=== PATIENT | female | born 1945 | race Caucasian/White ===

== ENCOUNTER → 2017-02-17 20:44 | Outpatient (CLI) | payer MEDICARE | END | disposition home or self-care (01) | LOC: D.MAMMO 15:15 | DX: Z12.31 Encounter for screening mammogram for malignant neoplasm of breast (principal) ==

== ENCOUNTER 2017-07-24 11:35 | Inpatient (IN) | payer MEDICARE ==
[~2017-07-24] VITALS: Ht 154.9 cm; Wt 91.0 kg
--- NOTE | ~2017-07-24 | EC ---
PATIENT:BUZZ ARCHER DATE OF SERVICE: 07/24/17 SEX: F MEDICAL RECORD: [id number] DATE OF : 47 LOCATION:D.M2 D.211 AGE OF PATIENT: 72 ADMISSION DATE: 07/26/17 REFERRING PHYSICIAN: INTERPRETING PHYSICIAN: JIMMY ALSTON MD ECHOCARDIOGRAM REPORT ECHO CHARGES 4 ECHO COMPLETE CLINICAL DIAGNOSIS: DYSPNEA ECHOCARDIOGRAPHIC MEASUREMENTS (adult normal given) AC root (d.<3.7cm) 2.6 cm LV Septum d (<1.2 cm> 1.4 cm Valve Excursion 1.5 cm LV Septum (systole) 1.7 cm Left Atria (s.<4.0cm> 4.0 cm LVPW d(<1.2cm) 1.7 cm RV (d.<2.3cm) 4.3 cm LVPW (sytole) 2.0 cm LV diastole(<5.6CM) 4.6 cm MV E-F(>70mm/sec) cm LV systole 2.4 cm LVOT Diameter 1.4 cm MV exc.(>10mm) 1.1 cm Est.ejection fraction (50-75%) % Pericardial Effusion N DOPPLER: LVIT cm/sec A 66.0 cm/sec E 144 cm/sec LA cm/sec RVSP 58 mmHg LVOT 135 cm/sec AOP1/2T m/s Asc. Ao 167 cm/sec RVOT 98 cm/sec RA cm/sec PA 226 cm/sec AV Gradient Peak 24.60mmHg AV Mean 12.62mmHg AV Area 1.8 cm MV Gradient Peak 16.24mmHg MV Mean 5.52 mmHg MV Area cm COMMENTS: Hospice Music Therapy: Bette FERNANDES Superintendent Circus: 1 Dr. Alston TAPE# PACS DATE OF SERVICE: 07/25/2017 FINDINGS: 1. Left ventricle chamber size is within normal limits. Left ventricular systolic function is normal. Overall ejection fraction estimated at 60%. 2. Left atrium is upper limits of normal at 4.0 cm. Right atrium and right ventricular chamber sizes are mildly dilated. 3. Valvular structures: Aortic valve demonstrates mild calcific aortic stenosis. Valve area calculates to 1.8 cm-squared with a gradient of 24 mm across the valve. The remaining valvular structures have normal structure and ECHOCARDIOGRAM REPORT [id number] BUZZ ARCHER motion. 4. Doppler interrogation elsewise reveals moderate tricuspid regurgitation, mild mitral regurgitation. No other valvular insufficiency or stenosis; however, pulmonary systolic pressure is elevated estimated at 58 mmHg. 5. No evidence of pericardial effusion or left ventricular thrombus. TRANSINT:[id number] Voice Confirmation ID: [id number] DOCUMENT ID: [id number] JIMMY ALSTON MD at 1800 CC: [id number] DICTATION DATE: 07/26/17 112 EMBOSSING CALENDER OPERATOR: 07/26/17 1249 ADM IN [place] [id number] [place] [address]
--- NOTE | ~2017-07-24 | CN ---
PATIENT NAME:BUZZ ARCHER MEDICAL RECORD: [id number] : 47 LOCATION:[facility] D.2119 ADMIT DATE: 07/26/17 ACCOUNT: [id number] CONSULTING PHYSICIAN: IRAIDA REYES MD REFERRING PHYSICIAN: AI ARCEO MD DATE OF CONSULTATION: 07/28/2017 CHIEF COMPLAINT: Gastric antral vascular ectasias. HISTORY OF PRESENT ILLNESS: The patient has undergone EGD. It revealed gastric antral vascular ectasias. I have been consulted for argon plasma coagulation therapy to these areas. The patient was admitted through the Emergency Room. She arrived by EMS from Dr. May's office with chest pain. The chest pain started between her shoulder blades. The patient has had blood loss anemia. Nothing aggravates. Nothing alleviates. This is a consultation note addendum. For the typed portion of the consult note, please see the chart. The patient has had no headache, no syncope, no fever, no chills. The patient has blood loss anemia requiring transfusion. For the typed portion of consult note, please see the chart. This will include the past medical and surgical history, allergies, current medications, social history as well as family history. REVIEW OF SYSTEMS: As described above. Also, epigastric pain with tenderness, this radiates through to the back. The patient has had some melena. Review of systems is negative other than as is described above. PHYSICAL EXAMINATION: GENERAL: The patient does not appear acutely ill. She does not appear chronically ill. The entire physical examination was performed in the presence of a female nurse. VITAL SIGNS: Reviewed. EARS: External ears appear normal. EYES: Extraocular movements are intact. NECK: Trachea is midline. CHEST: No intercostal retractions. PULMONARY: Nonlabored, no stridor. ABDOMEN: Epigastric tenderness with guarding. EXTREMITIES: No peripheral cyanosis. INTEGUMENT: There is an intertriginous rash. BACK: Mild thoracic kyphosis. PSYCHIATRIC: Normal affect. NEUROLOGIC: Answers questions appropriately. IMPRESSION: Gastric antral vascular ectasias in the patient with melena who has had blood loss anemia requiring transfusions. PLAN: EGD with treatment of the gastric antral vascular ectasias with the argon plasma chest painting and sealing supervisor. TRANSINT:[id number] Voice Confirmation ID: [id number] DOCUMENT ID: [id number] CONSULT REPORT [id number] ARCHERBUZZ LUCAS ROBERT MD CC: BEKAH MAY [id number] DICTATION DATE: 07/29/17 1559 JEWELRY FACER: 07/29/17 1618 ADM IN [place] [id number] [place] [id number]
--- NOTE | ~2017-07-24 | OP ---
PATIENT NAME: BUZZ ARCHER MEDICAL RECORD: [id number] :47 LOCATION:D.M2 D.2119 ADMISSION DATE:07/26/17 SURGEON: IRAIDA REYES MD DATE OF OPERATION: 07/29/2017 PREOPERATIVE DIAGNOSES: 1. Melena. 2. Blood loss anemia requiring transfusions. 3. Gastric antral vascular ectasias. POSTOPERATIVE DIAGNOSES: 1. Melena. 2. Blood loss anemia requiring transfusions. 3. Gastric antral vascular ectasias. PROCEDURES: Esophagogastroduodenoscopy and then treatment of gastric antral vascular ectasias with the argon plasma building inspection engineer, which is a radiofrequency type of ablation of a benign gastric process. OPERATIVE COURSE: The patient was conveyed to the operating room electively on 07/29/2017. General anesthesia was induced by the anesthesia staff. A bite block was inserted. A gastroscope was inserted into the mouth. It was advanced easily into the hypopharynx. The esophagus was easily intubated as was the stomach and duodenum. Upon withdrawal, retroflexed and angulus views were obtained. No biopsies were obtained. Utilizing the esophageal setting in the forced mode, I ablated all the gastric antral vascular ectasias that I could identify. There was no evidence of full thickness injury to the stomach. I then withdrew the endoscope. I will see the patient tomorrow on rounds. I will inform the patient that although there is no need for the patient to follow up with me in the office, should she develop iron deficiency anemia or blood loss anemia requiring transfusions, she contact my office and we would set her up for another treatment regimen. TRANSINT:[id number] Voice Confirmation ID: [id number] DOCUMENT ID: [id number] IRAIDA REYES MD CC: NORIS CAVAZOS MD, BEKAH MAY SANSON, JODI MD and LUISA,[id number] DICTATION DATE: 07/29/17 1603 TILE SORTER: 07/29/17 1622 ADM IN [facility] [address] [place] [address]
[2017-07-24 12:18] LABS: BASOPHILS 0.5 % (0-2); EOSINOPHILS 3.3 % (0-7); HEMATOCRIT 25.5 % (36.0-48.0); IMMATURE GRANULOCYTES 0.2 % (0-5); LYMPHOCYTES 23.9 % (15-50); MCH 21.4 pg (26.0-34.0); MCHC 29.4 g/dL (31.0-37.0); MCV 72.6 fL (80.0-100.0); MONOCYTES 14.6 % (2-11); NEUTROPHILS 57.5 % (40-80); PLATELET COUNT 85 10x3/uL (130-400); RBC 3.51 10x6/uL (4.00-5.40); RDW 18.9 % (11.5-14.5); WBC 4.2 10x3/uL (4.8-10.8)
[2017-07-24 12:23] LABS: HEMOGLOBIN 7.5 g/dL (12-16)
[2017-07-24 12:28] LABS: ALBUMIN 2.9 g/dL (3.4-5.0); ALKALINE PHOSPHATASE 89 U/L (46-116); ALT (SGPT) 19 U/L (10-68); BILIRUBIN - TOTAL 1.43 mg/dL (0.2-1.3); CALC OSMOLALITY 282 mosm/kg (275-300); CALCIUM 8.3 mg/dL (8.5-10.1); CARBON DIOXIDE 29.2 mmol/L (21.0-32.0); CHLORIDE - SERUM 106 mmol/L (98-107); CREATININE - SERUM 0.9 mg/dL (0.6-1.3); GLUCOSE 119 mg/dL (74-106); POTASSIUM - SERUM 3.5 mmol/L (3.5-5.1); PROTEIN - SERUM 5.8 g/dL (6.4-8.2); SODIUM 141 mmol/L (136-145); UREA NITROGEN 15 mg/dL (7-18); eGFR NON AFRICAN AMERICAN 65 mL/min (90-120)
[2017-07-24 12:38] LABS: CHOL - HDL RATIO 2.3 ratio (2.3-4.1); CHOLESTEROL, TOTAL 107 mg/dL (0-200); CKMB 0.9 U/L (0.0-3.6); CREATINE KINASE 47 UL (21-215); HDL CHOLESTEROL 47 mg/dL (32-96); LDL CHOLESTEROL 49 mg/dL (0-100); TRIGLYCERIDE 58 mg/dL (30-200)
[2017-07-24 12:40] LABS: TROPONIN-I < 0.017 ng/mL (0.000-0.060)
[2017-07-24 18:40] LABS: CREATINE KINASE 48 UL (21-215)
[2017-07-24 18:41] LABS: TROPONIN-I < 0.017 ng/mL (0.000-0.060)
[2017-07-24 23:41] VITALS: BP 121/45; BMI 38.4
[2017-07-25 00:29] LABS: CKMB 0.9 U/L (0.0-3.6); CREATINE KINASE 53 UL (21-215)
[2017-07-25 00:30] LABS: TROPONIN-I < 0.017 ng/mL (0.000-0.060)
[2017-07-25] MEDS ORDERED: LEVOTHYROXINE75 MCG PO (04:05)
[2017-07-25] MEDS ORDERED: OMEPRAZOLE DR 20 MG PO (04:08)
[2017-07-25] MEDS ORDERED: KLOR-CON M2020 MEQ PO (04:08)
[2017-07-25] MEDS ORDERED: FUROSEMIDE40 MG PO (04:09)
[2017-07-25] MEDS ORDERED: HYDROCODONE-APA1 TAB PO (04:10)
[2017-07-25] MEDS ORDERED: GLIMEPIRIDE2 MG PO (04:11)
[2017-07-25] MEDS ORDERED: PROPAFENONE HC225 MG PO (04:12)
[2017-07-25] MEDS ORDERED: BAYER CHEWABLE81 MG PO (04:13)
[2017-07-25] MEDS ORDERED: CARAFATE1 G PO (04:14)
[2017-07-25 06:45] LABS: HEMATOCRIT 28.4 % (36.0-48.0); HEMOGLOBIN 8.4 g/dL (12-16); MCH 21.9 pg (26.0-34.0); MCHC 29.6 g/dL (31.0-37.0); MCV 74.2 fL (80.0-100.0); PLATELET COUNT 74 10x3/uL (130-400); RBC 3.83 10x6/uL (4.00-5.40); RDW 19.5 % (11.5-14.5)
[2017-07-25 06:46] LABS: WBC 2.6 10x3/uL (4.8-10.8)
[2017-07-25 07:15] LABS: CALC OSMOLALITY 288 mosm/kg (275-300); CALCIUM 8.6 mg/dL (8.5-10.1); CARBON DIOXIDE 28.1 mmol/L (21.0-32.0); CHLORIDE - SERUM 110 mmol/L (98-107); CKMB 0.7 U/L (0.0-3.6); CREATINE KINASE 47 UL (21-215); GLUCOSE 96 mg/dL (74-106); SODIUM 145 mmol/L (136-145); UREA NITROGEN 13 mg/dL (7-18)
[2017-07-25 07:23] LABS: CREATININE - SERUM 0.6 mg/dL (0.6-1.3); TROPONIN-I 0.016 ng/mL (0.000-0.060); eGFR NON AFRICAN AMERICAN > 90 mL/min (90-120)
[2017-07-25 07:41] LABS: EOSINOPHILS 1 % (0-7); LYMPHOCYTES 21 % (15-50); MONOCYTES 6 % (2-11); NEUTROPHILS 70 % (40-80); PLATELET ESTIMATE DECREASED
[2017-07-25 08:03] VITALS: BP 133/48
[2017-07-25 11:08] VITALS: BMI 38.3
[2017-07-25 11:42] VITALS: BP 131/82
[2017-07-25 14:10] LABS: % SATURATION 7 % (15-55); IRON 28 ug/dl (35-150); TOTAL IRON BIND CAPACITY 365 ug/dl (260-445); UNSAT IRON BIND CAPACITY 337 ug/dl (150-375)
[2017-07-25 16:15] VITALS: BP 133/83
[2017-07-25 21:21] VITALS: BP 134/71
[2017-07-26] VITALS (15 sets, daily range): BP systolic 114–139; BP diastolic 53–72; Ht 154.9 cm; Wt 91.0 kg
[2017-07-26 06:33] LABS: BASOPHILS 0.4 % (0-2); EOSINOPHILS 3.5 % (0-7); HEMATOCRIT 25.8 % (36.0-48.0); HEMOGLOBIN 7.6 g/dL (12-16); IMMATURE GRANULOCYTES 0.4 % (0-5); LYMPHOCYTES 36.1 % (15-50); MCH 21.8 pg (26.0-34.0); MCHC 29.5 g/dL (31.0-37.0); MCV 74.1 fL (80.0-100.0); MEAN PLATELET VOLUME 9.5 fL (7.4-10.4); MONOCYTES 15.1 % (2-11); NEUTROPHILS 44.5 % (40-80); PLATELET COUNT 77 10x3/uL (130-400); RBC 3.48 10x6/uL (4.00-5.40); RDW 19.7 % (11.5-14.5); WBC 2.9 10x3/uL (4.8-10.8)
[2017-07-26 07:14] LABS: ALBUMIN 2.5 g/dL (3.4-5.0); ALKALINE PHOSPHATASE 76 U/L (46-116); ALT (SGPT) 18 U/L (10-68); CALC OSMOLALITY 286 mosm/kg (275-300); CALCIUM 7.8 mg/dL (8.5-10.1); CARBON DIOXIDE 29.7 mmol/L (21.0-32.0); CHLORIDE - SERUM 107 mmol/L (98-107); CREATININE - SERUM 0.6 mg/dL (0.6-1.3); GLUCOSE 90 mg/dL (74-106); POTASSIUM - SERUM 3.3 mmol/L (3.5-5.1); PROTEIN - SERUM 5.1 g/dL (6.4-8.2); SODIUM 144 mmol/L (136-145); UREA NITROGEN 12 mg/dL (7-18); eGFR NON AFRICAN AMERICAN > 90 mL/min (90-120)
[2017-07-26 08:22] LABS: FOLATE (FOLIC ACID) - SERUM 9.3 ng/mL (>3.0)
[2017-07-26 08:38] LABS: INR 1.79 (0.85-1.17); PROTIME 20.2 SECONDS (11.6-15.0)
[2017-07-26 08:39] LABS: APTT 39.5 SECONDS (22.8-39.4)
[2017-07-26 10:59] LABS: % SATURATION 6 % (15-55); IRON 20 ug/dl (35-150); TOTAL IRON BIND CAPACITY 330 ug/dl (260-445); UNSAT IRON BIND CAPACITY 310 ug/dl (150-375)
[2017-07-27] VITALS: BP 147/81
[2017-07-27 04:00] VITALS: BP 132/59
[2017-07-27 06:07] LABS: BASOPHILS 0.6 % (0-2); EOSINOPHILS 5.1 % (0-7); HEMATOCRIT 28.7 % (36.0-48.0); HEMOGLOBIN 8.6 g/dL (12-16); MCH 22.5 pg (26.0-34.0); MCV 75.1 fL (80.0-100.0); MEAN PLATELET VOLUME 9.7 fL (7.4-10.4); MONOCYTES 15.9 % (2-11); NEUTROPHILS 49.4 % (40-80); PLATELET COUNT 78 10x3/uL (130-400); RBC 3.82 10x6/uL (4.00-5.40); RDW 19.7 % (11.5-14.5); WBC 3.1 10x3/uL (4.8-10.8)
[2017-07-27 06:29] LABS: ALBUMIN 2.7 g/dL (3.4-5.0); ALKALINE PHOSPHATASE 79 U/L (46-116); ALT (SGPT) 22 U/L (10-68); CALC OSMOLALITY 285 mosm/kg (275-300); CALCIUM 7.8 mg/dL (8.5-10.1); CARBON DIOXIDE 29.9 mmol/L (21.0-32.0); CHLORIDE - SERUM 107 mmol/L (98-107); CREATININE - SERUM 0.6 mg/dL (0.6-1.3); GLUCOSE 91 mg/dL (74-106); POTASSIUM - SERUM 3.4 mmol/L (3.5-5.1); PROTEIN - SERUM 5.2 g/dL (6.4-8.2); SODIUM 144 mmol/L (136-145); UREA NITROGEN 9 mg/dL (7-18); eGFR NON AFRICAN AMERICAN > 90 mL/min (90-120)
[2017-07-27 06:30] LABS: INR 1.72 (0.85-1.17); PROTIME 19.6 SECONDS (11.6-15.0)
[2017-07-27 08:30] VITALS: BP 131/42
[2017-07-27 12:30] VITALS: BP 120/58
[2017-07-27 16:30] VITALS: BP 131/52
[2017-07-28] VITALS: BP 106/39
[2017-07-28 04:00] VITALS: BP 113/48
[2017-07-28 05:01] LABS: BASOPHILS 0.3 % (0-2); EOSINOPHILS 2.1 % (0-7); HEMATOCRIT 28.6 % (36.0-48.0); HEMOGLOBIN 8.6 g/dL (12-16); LYMPHOCYTES 26.4 % (15-50); MCH 22.8 pg (26.0-34.0); MCHC 30.1 g/dL (31.0-37.0); MCV 75.7 fL (80.0-100.0); MEAN PLATELET VOLUME 9.5 fL (7.4-10.4); MONOCYTES 20.1 % (2-11); NEUTROPHILS 51.1 % (40-80); PLATELET COUNT 77 10x3/uL (130-400); RBC 3.78 10x6/uL (4.00-5.40); RDW 20.3 % (11.5-14.5); WBC 3.3 10x3/uL (4.8-10.8)
[2017-07-28 05:18] LABS: ALBUMIN 2.7 g/dL (3.4-5.0); ALKALINE PHOSPHATASE 84 U/L (46-116); ALT (SGPT) 20 U/L (10-68); CALC OSMOLALITY 281 mosm/kg (275-300); CALCIUM 7.7 mg/dL (8.5-10.1); CARBON DIOXIDE 29.7 mmol/L (21.0-32.0); CHLORIDE - SERUM 106 mmol/L (98-107); GLUCOSE 103 mg/dL (74-106); POTASSIUM - SERUM 3.6 mmol/L (3.5-5.1); PROTEIN - SERUM 5.3 g/dL (6.4-8.2); SODIUM 142 mmol/L (136-145); UREA NITROGEN 10 mg/dL (7-18); eGFR NON AFRICAN AMERICAN 75 mL/min (90-120)
[2017-07-28 05:29] LABS: CREATININE - SERUM 0.8 mg/dL (0.6-1.3)
[2017-07-28 09:10] VITALS: BP 134/59
[2017-07-28 09:18] LABS: ANA REFLEX - DIRECT Negative (Negative)
[2017-07-28 10:20] LABS: ALPHA FETOPROTEIN -(TUMOR MRK) 4.5 ng/mL (0.0-8.3)
[2017-07-28 12:55] VITALS: BP 142/61
[2017-07-28 15:22] LABS: HEPATITIS C ANTIBODY <0.1 (0.0-0.9)
[2017-07-28 18:30] VITALS: BP 132/51
[2017-07-29 05:26] LABS: BASOPHILS 0.5 % (0-2); EOSINOPHILS 3.7 % (0-7); HEMATOCRIT 27.9 % (36.0-48.0); HEMOGLOBIN 8.4 g/dL (12-16); IMMATURE GRANULOCYTES 0.5 % (0-5); LYMPHOCYTES 33.8 % (15-50); MCH 22.8 pg (26.0-34.0); MCHC 30.1 g/dL (31.0-37.0); MCV 75.8 fL (80.0-100.0); MEAN PLATELET VOLUME 9.6 fL (7.4-10.4); MONOCYTES 22.2 % (2-11); NEUTROPHILS 39.3 % (40-80); PLATELET COUNT 68 10x3/uL (130-400); RBC 3.68 10x6/uL (4.00-5.40); RDW 20.5 % (11.5-14.5)
[2017-07-29 05:27] LABS: WBC 2.2 10x3/uL (4.8-10.8)
[2017-07-29 05:48] LABS: ALBUMIN 2.6 g/dL (3.4-5.0); ALKALINE PHOSPHATASE 82 U/L (46-116); ALT (SGPT) 22 U/L (10-68); BILIRUBIN - TOTAL 1.66 mg/dL (0.2-1.3); CALC OSMOLALITY 276 mosm/kg (275-300); CALCIUM 8.2 mg/dL (8.5-10.1); CARBON DIOXIDE 27.9 mmol/L (21.0-32.0); CHLORIDE - SERUM 104 mmol/L (98-107); CREATININE - SERUM 0.6 mg/dL (0.6-1.3); GLUCOSE 104 mg/dL (74-106); POTASSIUM - SERUM 3.5 mmol/L (3.5-5.1); PROTEIN - SERUM 5.4 g/dL (6.4-8.2); SODIUM 139 mmol/L (136-145); UREA NITROGEN 9 mg/dL (7-18); eGFR NON AFRICAN AMERICAN > 90 mL/min (90-120)
[2017-07-29 06:37] VITALS: BP 138/58
[2017-07-29 10:06] VITALS: BP 119/52
[2017-07-29 12:31] VITALS: BP 116/43
[2017-07-29 16:10] VITALS: BP 120/61
[2017-07-29 17:43] VITALS: BP 120/46
[2017-07-30] VITALS: BP 124/43
[2017-07-30 04:00] VITALS: BP 114/49
[2017-07-30 05:27] LABS: BASOPHILS 0.1 % (0-2); EOSINOPHILS 0.8 % (0-7); HEMOGLOBIN 8.9 g/dL (12-16); IMMATURE GRANULOCYTES 0.3 % (0-5); LYMPHOCYTES 8.8 % (15-50); MCH 22.6 pg (26.0-34.0); MCHC 29.7 g/dL (31.0-37.0); MCV 76.1 fL (80.0-100.0); MEAN PLATELET VOLUME 10.2 fL (7.4-10.4); PLATELET COUNT 81 10x3/uL (130-400); RBC 3.94 10x6/uL (4.00-5.40); RDW 20.6 % (11.5-14.5)
[2017-07-30 05:33] LABS: INR 1.96 (0.85-1.17); PROTIME 21.7 SECONDS (11.6-15.0)
[2017-07-30 05:47] LABS: ALBUMIN 2.7 g/dL (3.4-5.0); ALKALINE PHOSPHATASE 86 U/L (46-116); ALT (SGPT) 20 U/L (10-68); CALC OSMOLALITY 277 mosm/kg (275-300); CALCIUM 8.2 mg/dL (8.5-10.1); CARBON DIOXIDE 27.6 mmol/L (21.0-32.0); CHLORIDE - SERUM 106 mmol/L (98-107); GLUCOSE 122 mg/dL (74-106); POTASSIUM - SERUM 3.7 mmol/L (3.5-5.1); PROTEIN - SERUM 5.4 g/dL (6.4-8.2); SODIUM 140 mmol/L (136-145); UREA NITROGEN 8 mg/dL (7-18); eGFR NON AFRICAN AMERICAN 75 mL/min (90-120)
[2017-07-30 05:52] LABS: CREATININE - SERUM 0.8 mg/dL (0.6-1.3)
[2017-07-30 09:20] VITALS: BP 135/44
[2017-07-30 10:08] LABS: MITOCHONDRIAL ANTIBODY 9.9 Units (0.0-20.0); SMOOTH MUSCLE ABS (ACTIN) 11 Units (0-19)
[2017-07-30 11:43] VITALS: BP 129/72
[2017-07-30 16:20] VITALS: BP 129/66
[2017-07-30 20:00] VITALS: BP 124/46
[2017-07-31 04:45] LABS: BASOPHILS 0.2 % (0-2); EOSINOPHILS 1.8 % (0-7); HEMATOCRIT 29.1 % (36.0-48.0); HEMOGLOBIN 8.6 g/dL (12-16); IMMATURE GRANULOCYTES 0.4 % (0-5); LYMPHOCYTES 11.9 % (15-50); MCH 22.4 pg (26.0-34.0); MCHC 29.6 g/dL (31.0-37.0); MCV 75.8 fL (80.0-100.0); MEAN PLATELET VOLUME 9.8 fL (7.4-10.4); MONOCYTES 7.6 % (2-11); NEUTROPHILS 78.1 % (40-80); PLATELET COUNT 82 10x3/uL (130-400); RBC 3.84 10x6/uL (4.00-5.40); RDW 20.7 % (11.5-14.5); WBC 10.6 10x3/uL (4.8-10.8)
[2017-07-31 04:56] LABS: ALBUMIN 2.7 g/dL (3.4-5.0); ALKALINE PHOSPHATASE 91 U/L (46-116); ALT (SGPT) 17 U/L (10-68); BILIRUBIN - TOTAL 1.51 mg/dL (0.2-1.3); CALC OSMOLALITY 279 mosm/kg (275-300); CALCIUM 7.9 mg/dL (8.5-10.1); CARBON DIOXIDE 28.7 mmol/L (21.0-32.0); CHLORIDE - SERUM 105 mmol/L (98-107); CREATININE - SERUM 0.8 mg/dL (0.6-1.3); GLUCOSE 134 mg/dL (74-106); POTASSIUM - SERUM 3.4 mmol/L (3.5-5.1); PROTEIN - SERUM 5.4 g/dL (6.4-8.2); SODIUM 140 mmol/L (136-145); UREA NITROGEN 9 mg/dL (7-18); eGFR NON AFRICAN AMERICAN 75 mL/min (90-120)
[2017-07-31 08:20] VITALS: BP 109/48
[2017-07-31 11:56] VITALS: BP 115/56
[2017-07-31 15:35] VITALS: BP 110/43
[2017-07-31 21:11] VITALS: BP 123/49
[2017-08-01 06:13] LABS: BASOPHILS 0.3 % (0-2); HEMATOCRIT 28.5 % (36.0-48.0); HEMOGLOBIN 8.4 g/dL (12-16); IMMATURE GRANULOCYTES 0.5 % (0-5); LYMPHOCYTES 22.5 % (15-50); MCH 22.5 pg (26.0-34.0); MCHC 29.5 g/dL (31.0-37.0); MCV 76.2 fL (80.0-100.0); MEAN PLATELET VOLUME 9.6 fL (7.4-10.4); MONOCYTES 13.2 % (2-11); NEUTROPHILS 60.5 % (40-80); PLATELET COUNT 82 10x3/uL (130-400); RBC 3.74 10x6/uL (4.00-5.40); RDW 21.1 % (11.5-14.5)
[2017-08-01 06:20] LABS: WBC 5.9 10x3/uL (4.8-10.8)
[2017-08-01 06:32] LABS: ALBUMIN 2.6 g/dL (3.4-5.0); ALKALINE PHOSPHATASE 89 U/L (46-116); ALT (SGPT) 17 U/L (10-68); BILIRUBIN - TOTAL 1.31 mg/dL (0.2-1.3); CALC OSMOLALITY 278 mosm/kg (275-300); CALCIUM 8.2 mg/dL (8.5-10.1); CARBON DIOXIDE 27.5 mmol/L (21.0-32.0); CHLORIDE - SERUM 106 mmol/L (98-107); CREATININE - SERUM 0.8 mg/dL (0.6-1.3); GLUCOSE 121 mg/dL (74-106); POTASSIUM - SERUM 3.8 mmol/L (3.5-5.1); PROTEIN - SERUM 5.3 g/dL (6.4-8.2); SODIUM 140 mmol/L (136-145); UREA NITROGEN 10 mg/dL (7-18); eGFR NON AFRICAN AMERICAN 75 mL/min (90-120)
[2017-08-01 08:37] VITALS: BP 145/67
[2017-08-01] MEDS ORDERED: ENULOSE10 G/15 ML PO (10:23)
[2017-08-01 12:13] VITALS: BP 135/65
== END 2017-08-01 15:04 | disposition home or self-care (01) | DRG 377 ==
LOC: D.ER 11:35 → D.WS 22:15 → OBSVTIME 22:15 → D.M2 07-26 13:59 → D.WS 07-26 13:59 → D.M2 07-27 19:41
PROVIDERS: Family Medicine; Internal Medicine Gastroenterology; Internal Medicine Hematology & Oncology
PROC: 0DJD8ZZ Inspection of Lower Intestinal Tract, Via Natural or Artificial Opening Endoscopic (ICD-10-PCS; 2017-07-27)
PROC: 0DJ08ZZ Inspection of Upper Intestinal Tract, Via Natural or Artificial Opening Endoscopic (ICD-10-PCS; principal; 2017-07-27 15:15)
PROC: 0W3P8ZZ Control Bleeding in Gastrointestinal Tract, Via Natural or Artificial Opening Endoscopic (ICD-10-PCS; 2017-07-29)
DX: K31.811 Angiodysplasia of stomach and duodenum with bleeding (principal); J96.21 Acute and chronic respiratory failure with hypoxia; I24.8 Other forms of acute ischemic heart disease; D61.818 Other pancytopenia; D62 Acute posthemorrhagic anemia; I11.0 Hypertensive heart disease with heart failure; I50.9 Heart failure, unspecified; R16.1 Splenomegaly, not elsewhere classified; E87.6 Hypokalemia; E83.51 Hypocalcemia; K74.60 Unspecified cirrhosis of liver; K31.7 Polyp of stomach and duodenum; B19.20 Unspecified viral hepatitis C without hepatic coma; K80.20 Calculus of gallbladder without cholecystitis without obstruction; K64.8 Other hemorrhoids; D50.9 Iron deficiency anemia, unspecified